=== PATIENT | male | born 1940 | race Caucasian/White ===

== ENCOUNTER → 2017-03-08 15:35 | Outpatient (CLI) | payer MEDICARE, OTHER | END | disposition home or self-care (01) | LOC: D.CT 15:30 | DX: M51.36 Other intervertebral disc degeneration, lumbar region (principal) ==

== ENCOUNTER → 2019-07-30 13:59 | Outpatient (CLI) | payer MEDICARE, OTHER ==
[2019-07-30 14:42] LABS: BASOPHILS 0.2 % (0-2); EOSINOPHILS 3.4 % (0-7); HEMATOCRIT 39.3 % (42.0-54.0); HEMOGLOBIN 14.1 g/dL (13.5-17.5); IMMATURE GRANULOCYTES 0.2 % (0-5); LYMPHOCYTES 19.3 % (15-50); MCH 32.1 pg (26.0-34.0); MCHC 35.9 g/dL (31.0-37.0); MCV 89.5 fL (80.0-100.0); MEAN PLATELET VOLUME 9.6 fL (7.4-10.4); MONOCYTES 8.2 % (2-11); NEUTROPHILS 68.7 % (40-80); PLATELET COUNT 219 10x3/uL (130-400); RBC 4.39 10x6/uL (4.20-6.10); RDW 12.7 % (11.5-14.5); WBC 5.2 10x3/uL (4.8-10.8)
== END | disposition home or self-care (01) ==
LOC: D.CT 13:59
PROVIDERS: ATTEND Internal Medicine Gastroenterology
DX: R10.9 Unspecified abdominal pain (principal)

== ENCOUNTER 2020-04-08 09:32 | Day surgery (SDC) | payer MEDICARE, OTHER ==
[~2020-04-08] VITALS: Ht 177.8 cm; Wt 87.7 kg
[2020-04-08 09:57] LABS: BASOPHILS 0.2 % (0-2); EOSINOPHILS 2.3 % (0-7); HEMATOCRIT 44.5 % (42.0-54.0); HEMOGLOBIN 14.9 g/dL (13.5-17.5); IMMATURE GRANULOCYTES 0.2 % (0-5); LYMPHOCYTES 18.7 % (15-50); MCH 31.4 pg (26.0-34.0); MCHC 33.5 g/dL (31.0-37.0); MCV 93.7 fL (80.0-100.0); MEAN PLATELET VOLUME 9.5 fL (7.4-10.4); MONOCYTES 8.9 % (2-11); NEUTROPHILS 69.7 % (40-80); PLATELET COUNT 244 10x3/uL (130-400); RBC 4.75 10x6/uL (4.20-6.10); RDW 12.7 % (11.5-14.5); WBC 4.8 10x3/uL (4.8-10.8)
[2020-04-08 10:27] LABS: ALBUMIN 3.7 g/dL (3.4-5.0); ANION GAP 12.1 mmol/L (8-16); BILIRUBIN - TOTAL 1.08 mg/dL (0.2-1.3); CARBON DIOXIDE 25.2 mmol/L (21.0-32.0); CREATININE - SERUM 1.2 mg/dL (0.6-1.3); POTASSIUM - SERUM 4.3 mmol/L (3.5-5.1); PROTEIN - SERUM 7.4 g/dL (6.4-8.2)
[2020-04-08] MEDS ORDERED: BETAPACE 120 M120 MG PO (10:53)
[2020-04-08] MEDS ORDERED: COUMADIN2.5 MG PO (10:54)
[2020-04-08] MEDS ORDERED: LISINOPRIL2.5 MG PO (10:55)
[2020-04-08] MEDS ORDERED: CALCIUM 600 +1 EAC3 PO (10:57)
[2020-04-08] MEDS ORDERED: OMEPRAZOLE40 MG PO (10:57)
[2020-04-08] MEDS ORDERED: MULTI-DAY VITAM1 TAB PO (10:58)
[2020-04-08] MEDS ORDERED: VITAMIN B-121000 MCG PO (10:58)
[2020-04-08] MEDS ORDERED: GLUCOSAMINE HC500 MG PO (10:59)
[2020-04-08 11:08] VITALS: Ht 177.8 cm; Wt 87.7 kg
--- NOTE | 2020-04-08 13:14 | NUR ---
CHEST X-RAY TAKEN TO R/O FREE AIR. WILL CONTINUE TO MONITOR.
--- NOTE | 2020-04-08 13:40 | NUR ---
X-RAY RESULTS CAME BACK. NO FREE AIR. DC INSTRUCTIONS GIVEN TO PT. STATES UNDERSTANDING. DC'D IV CATH FULLY INTACT. WILL DC SHORTLY.
--- NOTE | 2020-04-08 13:41 | NUR ---
FLAGYL PRESCRIPTION GIVEN DIRECTLY TO SPOUSE.
--- NOTE | 2020-04-08 13:51 | HP ---
PATIENT: GERSON FULLER MEDICAL RECORD: [id number] ACCOUNT: [id number] LOCATION:[facility] : 40 ADMISSION DATE: 04/08/20 PCP: BIANKA DHALIWAL MD HISTORY AND PHYSICAL EXAMINATION CHIEF COMPLAINT: Large recurrent polyp. 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 It has been tattooed. Planned him for a colonoscopy with endoscopic mucosal resection of the polyp versus argon plasma coagulation therapy. PAST MEDICAL AND SURGICAL HISTORY: Atrial fibrillation, pacemaker, cardiomyopathy, inguinal hernia, diverticular disease, hypertension, gastroesophageal reflux, skin cancer, polyarthropathy, history of prostate cancer, history of renal disease, history of sinus node dysfunction. SOCIAL HISTORY: Nonsmoker. HOME MEDICINES: Reviewed. ALLERGIES: SULFA, WHICH CAUSES HIVES. PHYSICAL EXAMINATION: GENERAL: The patient does not appear acutely ill. He does not appear chronically ill. VITAL SIGNS: Reviewed. EARS: External ears appear normal. EYES: Extraocular movements are intact. NECK: Trachea is midline. CHEST: No intercostal retractions. PULMONARY: Nonlabored, no stridor. 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 PLAN: Colonoscopy with polypectomies as described above. TRANSINT:[id number] Voice Confirmation ID: [id number] DOCUMENT ID: [id number] MEDHAT TOMLINSON MD at 1351 CC: PATSY CHANDLER MD and BIANKA DHALIWAL MD [id number] DICTATION DATE: 04/08/20 1150 RUG CUTTER: 04/08/20 1231 [facility] [address] [place] [address]
--- NOTE | 2020-04-08 13:56 | NUR ---
PT STATES PAIN HAS DECREASED. PT LEFT UNIT VIA WC AT 1346
--- NOTE | 2020-04-09 14:51 | OP ---
PATIENT NAME: GERSON FULLER MEDICAL RECORD: [id number] :40 LOCATION:D.OPS ADMISSION DATE: SURGEON: MEDHAT TOMLINSON MD DATE OF OPERATION: 04/08/2020 PREOPERATIVE DIAGNOSIS: Recurrent tubulovillous adenoma of the distal transverse colon/splenic flexure. POSTOPERATIVE DIAGNOSES: Recurrent tubulovillous adenoma of the distal transverse colon/splenic flexure with a secondary semi-pedunculated polyp, which was a 1.4 cm polyp. PROCEDURES: 1. Total colonoscopy to cecum. 2. Endoscopic mucosal resection, polypectomy of the recurrent polyp at the splenic flexure. Then placement of 2 hemostatic clips for post-procedural hemostasis as well as tissue reinforcement. 3. Hot biopsy forceps polypectomy technique of the semi-pedunculated polyp. SURGEON: Medhat Tomlinson MD CUSTOMS AND BORDER PROTECTION INSPECTOR: None. BLOOD LOSS: Minimal. ANESTHESIA: IV sedation. COMPLICATIONS: None. The risks, possible complications and alternatives to the procedure were explained to the patient. He elects to proceed. ENDOSCOPIC COURSE: The patient was conveyed to endoscopy suite electively on 04/08/2020, IV sedation was induced by the anesthesia staff. The patient was placed in the Carroll position. A digital rectal examination was performed. Post-prostatectomy changes were noted on digital examination. The colonoscope was inserted through the anus. It was easily advanced to the cecum. I intubated the ileum, which appeared normal. I then slowly withdrew the endoscope. A combination of normal imaging as well as narrow band imaging were utilized. The pullback was greater than 18-minute pullback. The prep was adequate. I noted a semi-pedunculated polyp. Utilizing the hot biopsy forceps polypectomy technique, this polyp was removed in its entirety. The recurrent polyp at the splenic flexure was on the folds. I elected to remove this, utilizing the endoscopic mucosal resection technique. I advanced the sclerotherapy needle. A submucosal injection of epinephrine was performed for a post-procedural hemostasis as the patient is going to be returning to Coumadin in the next 48 hours. I then used the same sclerotherapy needle to inject Eleview at the base of the polyp. There was a moderate lift to the polyp; however, centrally, it appeared to be tethered. I advanced an endoscopic snare. Utilizing the snare twice, first with the coagulation setting and then the cut setting, I performed a piecemeal polypectomy of this polyp. Both portions of this polyp were then sucked up into the polyp trap. Some further cold endoscopic biopsies were performed at the OPERATIVE REPORT [id number] FULLER,GERSON base of the polyp which was quite firm, which is somewhat worrisome. Any residual polypoid tissue was then ablated utilizing the argon plasma lab support technician with a right colon setting in the forced mode. For a post-procedural hemostasis as well as tissue reinforcement, I then advanced and deployed 2 endoscopic clips. The colonoscope was then withdrawn under direct vision. I will see the patient in my office in 2-3 weeks. If there is no evidence of an invasive malignancy, then I will recommend that his next colonoscopy to take place in 1 year. TRANSINT:[id number] Voice Confirmation ID: [id number] DOCUMENT ID: [id number] 04/09/2020 Edited for money manager error, dmm. MEDHAT TOMLINSON MD at 1451 CC: PATSY CHANDLER MD, KACEY FLORES and BIANKA DHALIWAL MD [id number] DICTATION DATE: 04/08/20 1226 FLOODPLAIN MANAGER: 04/08/20 1707 [facility] 04/08/20 [facility] [address] [place] [address]
== END 2020-04-08 13:46 | disposition home or self-care (01) ==
LOC: D.OPS 09:32
PROVIDERS: Anesthesiology; ATTEND Surgery
DX: D12.3 Benign neoplasm of transverse colon (principal); I48.91 Unspecified atrial fibrillation; Z95.0 Presence of cardiac pacemaker; I42.9 Cardiomyopathy, unspecified; I10 Essential (primary) hypertension; K21.9 Gastro-esophageal reflux disease without esophagitis

== ENCOUNTER → 2021-03-24 13:20 | Outpatient (CLI) | payer MEDICARE, OTHER ==
[2020-11-05 13:11] VITALS: BMI 27.6
[~2021-03-24 13:20] MED LIST: BETAPACE 120 M120 MG PO; CALCIUM 600 +1 EAC3 PO; COUMADIN2.5 MG PO; GLUCOSAMINE HC500 MG PO; LISINOPRIL2.5 MG PO; MULTI-DAY VITAM1 TAB PO; OMEPRAZOLE40 MG PO; VITAMIN B-121000 MCG PO
== END | disposition home or self-care (01) ==
LOC: D.CT 13:20
PROVIDERS: ATTEND Nurse Practitioner Family
DX: R93.89 Abnormal findings on diagnostic imaging of other specified body structures (principal)